=== PATIENT | female | born 1955 | race African-American/Black ===

== ENCOUNTER 2023-09-27 12:04 | Day surgery (SDC) | payer OTHER, SELFPAY ==
[2023-09-27 12:21] VITALS: BMI 36.3
[2023-09-27 12:22] VITALS: BP 150/87; BMI 36.3
[2023-09-27] MEDS: NORMOSOL-R 1000 IV (12:28)
[2023-09-27] MEDS: AFRIN NASAL SPRAY 2 SPRAYS NASAL (13:11)
[2023-09-27 14:20] VITALS: BP 134/92
[2023-09-27 14:30] VITALS: BP 152/83
== END 2023-09-27 14:59 | disposition home or self-care (01) ==
LOC: SDS 12:04
PROVIDERS: ATTENDING PHYSICIAN Otolaryngology Facial Plastic Surgery
DX: G47.33 Obstructive sleep apnea (adult) (pediatric) (principal); R06.83 Snoring
CPT/HCPCS: 42975